=== PATIENT | female | born 1965 | race Caucasian/White ===

== ENCOUNTER 2016-12-21 13:58 | Emergency (ER) | payer OTHER ==
[~2016-12-21] VITALS: Ht 172.7 cm; Wt 106.0 kg
[~2016-12-21 13:58] MED LIST: ACYCLOVIR800 MG PO; ALBUTEROL SULF8.5 GM IH; AMANTADINE100 M1 PO; AMBIEN10 M1 PO; ANTIVERT25 MG PO; BACTRIM,SEPT1 TABLET PO; DULCOLAX5 MG PO; FEOSOL325 MG PO; FLEXERIL10 MG PO; GLUCOPHAGE500 MG PO; HYCODAN SYRUP480 ML PO; HYDROCHLO; HYDROCHLOROTH12.5 M3 PO; HYDROCODON-ACE1 EAC7 PO; IBUPROFEN800 MG PO; INDOCIN25 MG PO; IRON325 MG PO; KLONOPIN0.5 M1 PO; KLONOPIN1 M1 PO; KLONOPIN1 MG PO; KLONOPIN2 MG PO; LEVOTHYROXINE75 MCG PO; LIDODERM 5% P1 PATCH TD; METFORMIN; NORCO 5/3251 TABLET PO; PAXIL10 MG; PAXIL20 MG PO; PREDNISONE10 M1 PO; PREDNISONE20 MG PO; PRILOSEC20 MG PO; PROAIR HFA8.5 GM IH; PROVENTIL HFA6.7 GM IH; PROVENTIL2.5 MG/3 M IH; PYRIDIUM100 MG PO; SIMVASTATIN; SIMVASTATIN20 MG PO; TESSALON PERLE100 MG PO; TIROSINT75 MCG PO; TRAMADOL HCL50 MG PO; TUSSIONEX PENN473 ML PO; ULTRAM50 MG PO; VALIUM5 MG PO; ZITHROMAX Z-PA250 MG PO; ZITHROMAX250 MG PO; ZYPREXA10 MG PO; ZYPREXA5 MG PO; ZYPREXA7.5 MG PO
[2016-12-21] MEDS ORDERED: MONTELUKAST SOD10 MG PO (15:02)
[2016-12-21] MEDS ORDERED: LORATADINE10 M2 PO (15:02)
[2016-12-21] MEDS ORDERED: SYMBICORT60 INHALA1 IH (15:03)
[2016-12-21 15:35] VITALS: BP 152/93
== END 2016-12-21 15:40 | disposition home or self-care (01) ==
LOC: EME 13:58
PROC: 0HQGXZZ Repair Left Hand Skin, External Approach (ICD-10-PCS; principal; 2016-12-21)
PROC: 3E0234Z Introduction of Serum, Toxoid and Vaccine into Muscle, Percutaneous Approach (ICD-10-PCS; 2016-12-21)
DX: S61.012A Laceration without foreign body of left thumb without damage to nail, initial encounter (principal); W26.0XXA Contact with knife, initial encounter; Z23 Encounter for immunization; E11.9 Type 2 diabetes mellitus without complications; I10 Essential (primary) hypertension; E78.00 Pure hypercholesterolemia, unspecified; J45.909 Unspecified asthma, uncomplicated; F17.200 Nicotine dependence, unspecified, uncomplicated
CPT/HCPCS: 99281; 99284

== ENCOUNTER 2016-12-25 21:19 | Emergency (ER) | payer OTHER ==
[~2016-12-25] VITALS: Ht 172.7 cm; Wt 106.9 kg
[~2016-12-25 21:19] MED LIST changes: +LORATADINE10 M2 PO; +MONTELUKAST SOD10 MG PO; +SYMBICORT60 INHALA1 IH
[2016-12-26] MEDS ORDERED: KEFLEX500 MG PO (00:34)
[2016-12-26] MEDS ORDERED: PREDNISONE20 MG PO (00:39)
[2016-12-26 00:43] VITALS: BP 146/77
== END 2016-12-26 00:54 | disposition home or self-care (01) ==
LOC: EXP 21:19 → EME 21:19 → EXP 12-26 00:54
DX: R21 Rash and other nonspecific skin eruption (principal); R06.02 Shortness of breath; M79.601 Pain in right arm; R19.7 Diarrhea, unspecified; J44.9 Chronic obstructive pulmonary disease, unspecified; J45.909 Unspecified asthma, uncomplicated; I10 Essential (primary) hypertension; E11.9 Type 2 diabetes mellitus without complications; F17.200 Nicotine dependence, unspecified, uncomplicated
CPT/HCPCS: 94640; 99281; 99284; J2930

== ENCOUNTER 2017-03-08 20:34 | Emergency (ER) | payer OTHER ==
[~2017-03-08] VITALS: Ht 172.7 cm; Wt 105.5 kg
[~2017-03-08 20:34] MED LIST changes: +KEFLEX500 MG PO
[2017-03-08] MEDS ORDERED: NORCO 7.5/321 TABLET PO (20:57)
[2017-03-08] MEDS ORDERED: MOTRIN800 MG PO (20:57)
[2017-03-08] MEDS ORDERED: VALIUM5 MG PO (20:57)
[2017-03-08 21:09] VITALS: BP 143/85
== END 2017-03-08 21:09 | disposition home or self-care (01) ==
LOC: EME 20:34
DX: M51.37 Other intervertebral disc degeneration, lumbosacral region (principal); S39.012A Strain of muscle, fascia and tendon of lower back, initial encounter; X58.XXXA Exposure to other specified factors, initial encounter; M79.604 Pain in right leg; M79.605 Pain in left leg; G89.29 Other chronic pain; I10 Essential (primary) hypertension; E78.5 Hyperlipidemia, unspecified; E11.9 Type 2 diabetes mellitus without complications; Z79.84 Long term (current) use of oral hypoglycemic drugs; F17.200 Nicotine dependence, unspecified, uncomplicated
CPT/HCPCS: 99281; 99284; J3010

== ENCOUNTER 2017-03-20 17:16 | Emergency (ER) | payer OTHER ==
[~2017-03-20] VITALS: Ht 172.7 cm; Wt 103.5 kg
[~2017-03-20 17:16] MED LIST changes: +MOTRIN800 MG PO; +NORCO 7.5/321 TABLET PO
[2017-03-20] MEDS ORDERED: PAXIL20 MG PO (17:56)
[2017-03-20 18:07] LABS: ADD MIUA? NO; BILIRUBIN NEGATIVE; BLOOD NEGATIVE; COLOR STRAW ((YELLOW)); GLUCOSE (STRIP) NEGATIVE; KETONES NEGATIVE; LEUKOCYTES NEGATIVE; NITRITE NEGATIVE; PROTEIN (STRIP) NEGATIVE; SPECIFIC GRAVITY 1.008 (1.000-1.030); UROBILINOGEN 0.2 MG/DL (0.2-1.0)
[2017-03-20 18:10] LABS: HEMATOCRIT 42.2 % (36.0-46.0); MCH 33.2 PG (29.0-34.0); MCHC 34.4 G/DL (30.0-36.0); MCV 96.6 FL (83-99); MEAN PLAT.VOLUME 11.5 uM^3 (9.5-12.4); PLATELET COUNT 154 K/uL (156-360); RBC DIS.WIDTH-CV 13.6 % (11.8-14.6); RED BLOOD COUNT 4.37 M/uL (3.80-5.20); WHITE BLOOD COUNT 8.4 K/uL (4.1-10.2)
[2017-03-20 18:21] LABS: CHLORIDE 101 mEq/L (99-109); POTASSIUM 3.5 mEq/L (3.7-5.4); SODIUM 136 mEq/L (136-147)
[2017-03-20 18:23] LABS: GLUCOSE 88 mg/dL (70-99)
[2017-03-20 18:25] LABS: ANION GAP 6 MEQ/L (2-14); TOTAL BILIRUBIN 0.3 mg/dL (0.0-1.0)
[2017-03-20 18:27] LABS: ALKALINE PHOSPHATASE 59 IU/L (3-129); GFR ESTIMATE (CALCULATED) > 59 mL/min/
[2017-03-20 18:28] LABS: UREA NITROGEN (BUN) 9 mg/dL (9-23)
[2017-03-20 18:30] LABS: LIPASE 29 U/L (1.0-51.0)
[2017-03-20] MEDS ORDERED: NAPROSYN500 MG PO (19:14)
[2017-03-20 19:48] VITALS: BP 146/83
== END 2017-03-20 19:49 | disposition home or self-care (01) ==
LOC: EME 17:16
PROVIDERS: Nurse Practitioner Family
DX: R05 Cough (principal); J44.9 Chronic obstructive pulmonary disease, unspecified; R07.81 Pleurodynia; R60.0 Localized edema; E87.6 Hypokalemia; J45.909 Unspecified asthma, uncomplicated; I10 Essential (primary) hypertension; F17.210 Nicotine dependence, cigarettes, uncomplicated; E11.9 Type 2 diabetes mellitus without complications; Z79.84 Long term (current) use of oral hypoglycemic drugs
CPT/HCPCS: 71020; 80053; 81003; 83690; 85027; 94640; 99281; 99284

== ENCOUNTER 2017-04-05 19:40 | Emergency (ER) | payer OTHER ==
[~2017-04-05] VITALS: Ht 172.7 cm; Wt 104.3 kg
[~2017-04-05 19:40] MED LIST changes: +NAPROSYN500 MG PO
[2017-04-05] MEDS ORDERED: MOTRIN800 MG PO (20:50)
[2017-04-05 21:12] VITALS: BP 137/82
== END 2017-04-05 21:13 | disposition home or self-care (01) ==
LOC: EME 19:40
DX: M25.462 Effusion, left knee (principal); W01.0XXA Fall on same level from slipping, tripping and stumbling without subsequent striking against object, initial encounter
CPT/HCPCS: 73564; 99281; 99284

== ENCOUNTER 2017-05-05 20:27 | Emergency (ER) | payer OTHER ==
[~2017-05-05] VITALS: Ht 172.7 cm; Wt 105.1 kg
[2017-05-05] MEDS ORDERED: PERCOCET 5/31 TABLET PO (21:15)
[2017-05-05] MEDS ORDERED: NAPROXEN500 MG PO (21:15)
[2017-05-05 22:14] VITALS: BP 143/88
== END 2017-05-05 22:14 | disposition home or self-care (01) ==
LOC: EME 20:27
DX: M54.5 Low back pain (principal); G89.29 Other chronic pain; I10 Essential (primary) hypertension; J44.9 Chronic obstructive pulmonary disease, unspecified; K21.9 Gastro-esophageal reflux disease without esophagitis; F17.200 Nicotine dependence, unspecified, uncomplicated
CPT/HCPCS: 99281; 99283; J8540

== ENCOUNTER → 2017-11-17 | Outpatient (CLI) | payer OTHER ==
[~2017-11-17] VITALS: Ht 172.7 cm; Wt 106.6 kg
[~2017-11-17] MED LIST changes: +NAPROXEN500 MG PO; +PERCOCET 5/31 TABLET PO; +VENTOLIN HFA18 GM IH
[2017-11-17 10:32] LABS: CHLORIDE 106 mEq/L (99-109)
[2017-11-17 10:33] LABS: SODIUM 139 mEq/L (136-147)
[2017-11-17 10:34] LABS: GLUCOSE 110 mg/dL (70-99)
[2017-11-17 10:38] LABS: CREATININE 0.8 mg/dL (0.6-1.3); GFR ESTIMATE (CALCULATED) > 59 mL/min/
[2017-11-17 10:39] LABS: UREA NITROGEN (BUN) 12 mg/dL (9-23)
== END | disposition home or self-care (01) ==
LOC: AMB 07:53
PROVIDERS: Internal Medicine
PROC: 0DBP8ZX Excision of Rectum, Via Natural or Artificial Opening Endoscopic, Diagnostic (ICD-10-PCS; principal; 2017-11-17)
DX: D12.8 Benign neoplasm of rectum (principal); K62.1 Rectal polyp; K64.8 Other hemorrhoids; K59.00 Constipation, unspecified; Z80.0 Family history of malignant neoplasm of digestive organs; E11.9 Type 2 diabetes mellitus without complications; I10 Essential (primary) hypertension; J45.909 Unspecified asthma, uncomplicated; E78.00 Pure hypercholesterolemia, unspecified; E03.9 Hypothyroidism, unspecified; M19.90 Unspecified osteoarthritis, unspecified site; E66.9 Obesity, unspecified; Z68.35 Body mass index [BMI] 35.0-35.9, adult; F25.0 Schizoaffective disorder, bipolar type; F17.200 Nicotine dependence, unspecified, uncomplicated; Z82.3 Family history of stroke; Z82.49 Family history of ischemic heart disease and other diseases of the circulatory system; Z83.3 Family history of diabetes mellitus; Z82.5 Family history of asthma and other chronic lower respiratory diseases
CPT/HCPCS: 80048; 82948; 88305; 93005; 94640; J2250; J3010

== ENCOUNTER 2018-06-12 19:31 | Emergency (ER) | payer OTHER ==
[~2018-06-12] VITALS: Ht 172.7 cm; Wt 107.8 kg
[2018-06-12 19:34] VITALS: BP 147/76
== END 2018-06-12 22:50 | disposition left against medical advice (07) ==
LOC: EME 19:31
DX: M25.562 Pain in left knee (principal); M25.462 Effusion, left knee; M79.662 Pain in left lower leg; M17.12 Unilateral primary osteoarthritis, left knee; M23.42 Loose body in knee, left knee; J44.9 Chronic obstructive pulmonary disease, unspecified; I10 Essential (primary) hypertension; E78.5 Hyperlipidemia, unspecified; E11.9 Type 2 diabetes mellitus without complications; Z79.84 Long term (current) use of oral hypoglycemic drugs; F17.200 Nicotine dependence, unspecified, uncomplicated; Z53.20 Procedure and treatment not carried out because of patient's decision for unspecified reasons
CPT/HCPCS: 73564; 99281; 99282